=== PATIENT | female | born 1955 | race Caucasian/White ===

== ENCOUNTER → 2019-08-19 | Outpatient (CLI) | payer MEDICARE ==
[2019-06-15 18:02] VITALS: BP 147/60
[~2019-08-19] MED LIST: AMLO10TA8 PO; ASPI-630 PO; CARV12.511 PO; CIPR500T94 PO; DOXY100T PO; FURO-68 PO; LACT1CAP19 PO; LISI-130 PO; NITR0.4T24 SL; PRAV40TA2 PO; PRED-220 PO; PRED20TA PO
--- NOTE | 2019-08-20 12:05 | SLEEP ---
DATE OF STUDY: 08/19/2019 POLYSOMNOGRAM REPORT OBJECTIVE: The patient is a 64-year-old female with excessive somnolence. Height 60 inches, weight 258 pounds, and body mass index 50.6. INTERPRETATION: Sleep architecture is characterized by sleep efficiency of 80% across the 7.1 hours of recording time. Stage volumes are appropriate for age. Sleep onset latency is 8.5 minutes. Respiratory monitoring shows a total of 194 events for an apnea-hypopnea index of 34 events per hour of sleep. The minimum oxygen saturation is 53%. Periodic limb movements of sleep are not observed. No significant cardiac arrhythmias are seen. Treatment is begun on this study. At a setting of 20 cm of CPAP, the apnea/hypopnea index falls to 1.1 events per hour of sleep. CPAP was performed using Respironics DreamWear full face mask, small size. IMPRESSION: Abnormal polysomnogram showing severe obstructive sleep apnea and hypopnea. On the split night study, 20 cm of CPAP at the above setting was effective in eradicating the apnea. RECOMMENDATIONS: 1. The patient should be started on the above setting. 2. She should avoid sedatives and alcohol and should pursue weight loss. Thank you for letting us to help with the patient's care. SANDRA NAYLOR MD DR: WES/pelon JOB#: [id number] / [id number] NOHELIA Pastor MD, GEORGE MD
== END | disposition home or self-care (01) ==
LOC: RT 19:04
PROVIDERS: ATTEND Internal Medicine Pulmonary Disease
DX: G47.33 Obstructive sleep apnea (adult) (pediatric) (principal)
CPT/HCPCS: 95810

== ENCOUNTER → 2019-08-20 | Outpatient (CLI) | payer MEDICARE ==
[2019-06-15 18:02] VITALS: BP 147/60
--- NOTE | 2019-08-20 13:00 | RAD ---
MR#: [id number] Date of Study: 08/20/2019 Ordering Physician: RENALDO CHASE, Referring Physician: RENALDO CHASE, Tech: Jada Calle RVT,ARIADNA APPROVED REPORT Patient Location: OUT-PATIENT Laterality:Bilateral Risk Factors Hypertension: TIA/CVA History Diabetes Smoking Surgery/Intervention Endarterectomy: right Doppler Spectral Velocity Analysis Right Left pCCA 72/15 cm/spCCA 114/21 cm/s mCCA 75/18 cm/smCCA 78/21 cm/s dCCA 57/13 cm/sdCCA 67/20 cm/s ECA 157/18 cm/sECA 86/12 cm/s pICA 97/34 cm/spICA 75/27 cm/s Nicole 124/40 cm/smICA 149/47 cm/s dICA 91/30 cm/sdICA 119/44 cm/s Vert. 112/26 cm/sVert. 58/20 cm/s ICA/CCA 1.65ICA/CCA 1.31 Findings Grayscale images of the bilateral common carotid, external and internal carotid vessels reveal modera te diffuse plaque. Spectral waveforms and color Doppler of the bilateral internal carotid arteries demonstrate mild prob able 0 to less than 50% stenosis on the right side and a moderate 50-69% stenosis on the left side ba sed on velocity criteria. Vertebral velocities are antegrade. Critical Notification Critical Value: No <Conclusion> 1. Mild right sided carotid disease. Moderate left-sided carotid disease. Signed by : Aiden Peacock, Electronically Approved : 08/20/2019 13:00:20
--- NOTE | 2019-08-20 15:28 | CARD ---
MR#: [id number] Date of Study: 08/20/2019 Ordering Physician: RNEALDO CHASE, Referring Physician: RENALDO CHASE, Bhavesh: Tiny Valdez APPROVED REPORT EXAM: Two-dimensional and M-mode echocardiogram with Doppler and color Doppler. Other Information Quality : AverageHR: 98bpm INDICATION Dyspnea CAD 2D DIMENSIONS RVDd3.2 (2.9-3.5cm)Left Atrium(2D)3.7 (1.6-4.0cm) IVSd1.7 (0.7-1.1cm)Aortic Root(2D)1.7 (2.0-3.7cm) LVDd4.0 (3.9-5.9cm)LVOT Diameter1.6 (1.8-2.4cm) PWd0.9 (0.7-1.1cm)LVDs3.0 (2.5-4.0cm) FS (%) 26.0 %SV36.9 ml LVEF(%)51.6 (>50%) Aortic Valve AoV Peak Carlos.182.2cm/sAoV VTI37.3cm AO Peak GR.13.3mmHgLVOT Peak Carlos.99.1cm/s AO Mean GR.8mmHgAVA (VMAX)1.06cm2 Mitral Valve MV E Mwwmajgm25.3cm/sMV E Peak Gr.5mmHg MV DECEL QGHD282ouES A Ccvivnqm51.0cm/s MV E Mean Gr.3mmHgE/A Ratio0.7 Pulmonary Valve PV Peak Bfaclqqm265.6cm/s Tricuspid Valve TR P. Qdrpgcmx052xx/sRAP [id number] TR Peak Gr.75ikHuJSIU71hwJb Pulmonary Vein S1 Mtqzgqdt21.6cm/sD2 Fhnwfvoc51.0cm/s LEFT VENTRICLE The left ventricle is normal size. There is moderate septal left ventricular hypertrophy. The left ve ntricular systolic function is normal. The Ejection Fraction is 55-60%. There is normal LV segmental wall motion. Transmitral Doppler flow pattern is Grade I-abnormal relaxation pattern. RIGHT VENTRICLE The right ventricle is normal size. There is normal right ventricular wall thickness. The right ventr icular systolic function is normal. ATRIA The left atrium size is normal. The right atrium size is normal. The interatrial septum is intact wit h no evidence for an atrial septal defect or patent foramen ovale as noted on 2-D or Doppler imaging. AORTIC VALVE The aortic valve is not well visualized. Doppler and Color Flow revealed no significant aortic regurg itation. There is no significant aortic valvular stenosis. MITRAL VALVE The mitral valve is mildly thickened. Mitral annular calcification is mild to moderate. There is no e vidence of mitral valve prolapse. There is no mitral valve stenosis. Doppler and Color-flow revealed trace mitral regurgitation. TRICUSPID VALVE The tricuspid valve is not well visualized. Doppler and Color Flow revealed mild tricuspid regurgitat ion with an estimated PAP of 33 mmHg. There is no tricuspid valve stenosis. PULMONIC VALVE The pulmonic valve is not well visualized. Doppler and Color Flow revealed no pulmonic valvular regur gitation. GREAT VESSELS The aortic root is normal in size. The ascending aorta is Mildly dilated. The IVC is normal in size a nd collapses >50% with inspiration. PERICARDIAL EFFUSION There is no pleural effusion. There is no evidence of significant pericardial effusion. Critical Notification Critical Value: No <Conclusion> The left ventricular systolic function is normal. The Ejection Fraction is 55-60%. There is normal LV segmental wall motion. Transmitral Doppler flow pattern is Grade I-abnormal relaxation pattern. Trace mitral regurgitation. Mild tricuspid regurgitation with an estimated PAP of 33 mmHg. There is no evidence of significant pericardial effusion. Signed by : Tonio Mobley, Electronically Approved : 08/20/2019 15:27:57
== END | disposition home or self-care (01) ==
LOC: ECHO 11:05
PROVIDERS: ATTEND Internal Medicine Cardiovascular Disease
DX: I08.1 Rheumatic disorders of both mitral and tricuspid valves (principal); I65.23 Occlusion and stenosis of bilateral carotid arteries; I25.10 Atherosclerotic heart disease of native coronary artery without angina pectoris; E11.9 Type 2 diabetes mellitus without complications; F17.200 Nicotine dependence, unspecified, uncomplicated; Z98.890 Other specified postprocedural states; Z86.73 Personal history of transient ischemic attack (TIA), and cerebral infarction without residual deficits
CPT/HCPCS: 93306; 93880